=== PATIENT | female | born 1975 | race Caucasian/White ===

== ENCOUNTER → 2016-11-19 | Outpatient (CLI) | payer BC ==
[~2016-11-19] MED LIST: CITA40TA4 PO; LORA10TA5 PO
== END | disposition home or self-care (01) ==
LOC: C.PAPS 14:50
PROVIDERS: ATTEND Obstetrics & Gynecology
DX: Z01.419 Encounter for gynecological examination (general) (routine) without abnormal findings (principal)

== ENCOUNTER → 2017-04-23 | Outpatient (CLI) | payer BC | END | disposition home or self-care (01) | LOC: C.PATHSPEC 08:09 | PROVIDERS: ATTEND Orthopaedic Surgery | DX: L03.012 Cellulitis of left finger (principal) ==

== ENCOUNTER → 2017-04-23 | Outpatient (CLI) | payer BC | END | disposition home or self-care (01) | LOC: C.LABSPEC 17:03 | PROVIDERS: ATTEND Orthopaedic Surgery | DX: L08.9 Local infection of the skin and subcutaneous tissue, unspecified (principal) ==

== ENCOUNTER → 2017-05-23 | Outpatient (CLI) | payer BC ==
--- NOTE | 2017-05-23 14:54 | MAMMOGRAPHY REPORT ---
ULTRASOUND OF RIGHT BREAST: 05/23/2017 CLINICAL HISTORY: Callback from screening mammogram for right breast masses. COMPARISON: Comparison is made to exam dated: 05/15/2017 mammogram - [facility]. TECHNIQUE: Real-time targeted ultrasound of the right breast was performed. FINDINGS: Real-time, high resolution targeted ultrasound was performed of the right breast in the re gion of the circumscribed masses seen on the recent screening mammogram. In the right breast at 12:0 0 periareolar region, there is an oval circumscribed anechoic 12 x 11 x 7 cm mass with a thin interna l septation. This corresponds with the circumscribed 14 mm mass seen on the recent screening mammogr am and is consistent with a benign cyst. In the right breast at 11:30, approximately 4 cm from the n ipple, there is an oval circumscribed anechoic 6 x 2 x 5 mm mass with 2-3 thin internal septations. This corresponds with the other circumscribed mass seen on the recent screening mammogram and is con sistent with a benign cyst. IMPRESSION: ACR BI-RADS CATEGORY 2: BENIGN The two circumscribed mammographic masses correspond with benign cysts in the right 11:30 and 12:00 b reast on ultrasound. There is no sonographic evidence of malignancy. A 1 year screening mammogram i s recommended. The patient was verbally notified of the results. Rose Marie Banks M.D. /:05/23/2017 10:56:38 Slag Worker: Kaila SANCHEZ)([place]), [facility] letter sent: Normal 1/2 BI-RADS Code: ACR BI-RADS Category 2: Benign
== END | disposition home or self-care (01) ==
LOC: C.MAMM 10:10
PROVIDERS: ATTEND Family Medicine
DX: N63.10 Unspecified lump in the right breast, unspecified quadrant (principal)

== ENCOUNTER → 2017-07-16 | Outpatient (CLI) | payer BC ==
[~2017-07-16] MED LIST changes: -LORA10TA5 PO; +LORA10TA6 PO
--- NOTE | 2017-07-19 09:28 | CODING QUERY NO DIAGNOSIS ---
TREATMENT RENDERED WITHOUT A DIAGNOSIS : 75 To promote full compliance with coding requirements relating to patient care, physician participation is requested in all cases of professional fee coder uncertainty. Please assist us with providing a diagnosis/symptom for the test(s) below: A diagnosis/symptom was not documented on your Order. A valid diagnosis/symptom is required to bill all insurances. Please remember that we are unable to code a diagnosis of rule out, probable, possible, questionable, or suspected. Tests that require a diagnosis: DOS: 07/16/17 * AERO/ANAE CULTURE DIAGNOSIS: Provider Signature: Date: Thank you Diana Barbosa Health Information Management Once completed, please kindly fax back to [phone] For questions please call [phone]
== END | disposition home or self-care (01) ==
LOC: C.LABSPEC 18:01
PROVIDERS: ATTEND Orthopaedic Surgery
DX: L03.012 Cellulitis of left finger (principal)